=== PATIENT | female | born 1985 | race Caucasian/White ===

== ENCOUNTER 2022-05-08 07:06 | Inpatient (IN) | payer OTHER, SELFPAY ==
--- NOTE | 2022-05-08 07:40 | PM.OBHP.1 ---
OB HPI Date/Time Date of admission: 05/08/22 Date Patient Seen: 05/08/22 Time Patient Seen: 07:40 History of Present Condition Chief complaint: induction of labor : 7 Para: 3 Estimated Date of Delivery: 05/03/22 Estimated Gestational Age (weeks): 40w5d Narrative: Archana Jacobs is a 36 year old female here today for IOL at 40w5d r/to AMA. She has been hopeful for spontaneous labor, but now feels that it is time to meet her baby. She has been having contractions daily but nothing painful enough to start labor. Didn't sleep well last night. Baby has been moving well. Hungry. Denies loss of fluid or vaginal discharge changes. Indications Indication for induction OB: other (Advanced maternal age) History of Present care: good care, initiated at week # (12) and number of visits (10) Dating criteria: LMP confirmed by 1st trimester US Obstetrical complications: none Medical complications: other (Rosa's) Preadmission Labs Blood type: AB (+) positive HCT: 33.4 Cell-free DNA: Negative x 3 1 hr GTT: 107 Prior (ies) History: x 3 in 2002, 2013, 2014 SAB x 2 TAB x 1 Evaluation Evaluation Baseline heart rate: 130 Variability: Moderate (11-25) monitor accelerations: Present Monitor Decelerations: Absent Contraction Frequency (minutes): 4 Uterine Contraction Intensity: Mild Category of Tracing: Reactive Dilation (cm): 5 Effacement (%): 75 Dilation: >/=5 cm Effacement: 60-70% station: -1 Position of cervix: posterior Consistency: soft Tran score: 9 PFSH Medical History (Updated 05/08/22 @ 08:04 by Cynthia Phillips CNM, PHAN) HPV (human papilloma virus) anogenital infection Surgical History (Updated 05/08/22 @ 08:04 by Cynthia Phillips CNM, PHAN) History of appendectomy Family History (Updated 05/08/22 @ 08:06 by Cynthia Phillips CNM, PHAN) Aunt Cancer Uncle Cancer Mother Hypertension FH: mental illness Social History (Updated 05/08/22 @ 08:08 by Cynthia Phillips CNM, SR. PAYROLL MANAGER) marital status: number of children: 3 household members: spouse and children lives independently: No caregiver/support person: No housing: house education level: college occupational status: employed current occupational exposures/hazards: No travel history: over 6 months ago sexual history: monogamous do you feel safe at home: Yes Smoking Status: Never smoker substance use type: does not use Meds Home Medications and Allergies Home Medications Medication Instructions Recorded Confirmed Type levothyroxine 125 mcg tablet mcg 05/08/22 History Allergies Allergy/AdvReac Type Severity Reaction Status Date / Time Penicillins Allergy Severe Anaphylaxis Verified 05/08/22 08:15 Current Medications Medications: Levothyroxine 237 mg daily Fluticasone (100 mcg) and Salmeterol (50 mcg) Review of Systems Review of Systems Narrative: all systems reviewed and negative except as mentioned in HPI OB Exam Vital signs Blood Pressure: 132/83 Pulse Rate: 107 Temperature: 35.9 F Resp Effort & Inspection: normal respiratory effort and able to speak in complete sentences Auscultation: clear to auscultation bilaterally Cardio Rate: regular rate Rhythm: regular rhythm Heart Sounds: S1 normal and S2 normal Extremities Lower extremity: Yes normal to inspection and edema (none) DTR's: Rt Patellar: 2+ and Lt Patellar: 2+ GI Inspection: normal to inspection and other (gravid) Uterus Location (Fundal Height): 40 Presentation: vertex Objective Labs 05/08/22 08:00 Assessment and Plan Assessment and Plan Assessment and Plan narrative: Assessment: at 40w5d IOL for advanced maternal age GBS neg Penicillin allergy Rh positive Plan: Admit to L&D Plan for AROM Epidural when desired Breakfast ordered IV to be in place Time Spent with Patient Total time spent with greater than 50% in coordination of care (as documented) at patient's floor/unit and/or counseling patient:: 15-24 minutes
[2022-05-08 08:26] VITALS: BP 132/83; PULSE 107; TEMP 2.2; TEMP 35.9
[2022-05-08 08:31] LABS: Add Manual Diff / Slide Review NO; Basophils Absolute Auto 0 /uL (0-100); Basophils Percent Auto 0.2 % (0-2); Eosinophils Absolute Auto 100 /uL (0-450); Eosinophils Percent Auto 1.7 % (2-4); Hematocrit 32.5 % (36-46); Hemoglobin 11.1 g/dL (12.0-16.0); Lymphocytes Absolute Auto 1100 /uL (1100-4500); Mean Corpuscular HGB Conc 34.2 % (30-36); Mean Corpuscular Hemoglobin 29.7 PG (26-34); Mean Corpuscular Volume 87.1 fL (80-100); Monocytes Absolute Auto 500 /uL (0-900); Monocytes Percent Auto 7.4 % (3-14); Neutrophils Absolute Auto 5400 /uL (1500-7000); Neutrophils Percent Auto 75.7 % (50-75); Platelet Count 212 X10^3/uL (150-400); Red Blood Cell Count 3.73 X10^6/uL (4.0-5.2); Red Cell Distribution Width 14.9 % (11.6-14.8); White Blood Cell Count 7.1 X10^3/uL (4.5-11.0)
[2022-05-08 10:28] VITALS: BP 132/83
[2022-05-08] MEDS: LACTATED RINGERS 1,000 ML 100 ML IV (13:28)
[2022-05-08] MEDS: FENT 2MCG/ML BUPIV 0.125% EPI 200 MCG/100 ML PLAST..BAG 6 MCG EPIDURAL (13:30)
--- NOTE | 2022-05-08 14:42 | PM.OBPNLAB ---
Date/Time Date Patient Seen: 05/08/22 Time Patient Seen: 14:45 Pain Control Pain control: epidural Comments: Archana is doing well. Had some more pain on right side after epidural but now feeling relief after anesthesia gave a bolus. Started shaking recently. Changing positons often. VS: BP 114/55, HR 101 Pelvic Exam Dilation (cm): 10 Effacement (%): 100 station: 0 Comments: Complete Contractions Contractions on admission: irregular Contraction pattern: Regular (2-5 minutes) Contraction intensity: Strong/Firm Status status: Category l Heart Rate Baseline: 125 Monitor Accelerations: Present Monitor Decelerations: Early and Periodic (occasional) Monitor Variability: Moderate Assessment and Plan Assessment: active labor and other (complete) Comments: ASSESSMENT: 36 yo at 40w5d Completely dilated ROM x 6 hours, clear fluid, afebrile FHR Cat 1 AMA, Asthma, Rosa's PLAN: Lacy to call for family to come to hospital. Labor down for one hour then begin pushing.
--- NOTE | 2022-05-08 18:11 | P.PCNOB_ITS ---
Labor & Delivery Delivery date: 05/08/22 Intrapartal Events: None Cervical ripening method: none Induction method: AROM (clear fluid) Delivery monitor: external FHT and external uterine Route of delivery: L&D Laceration Description: Periurethral - 1st Degree (hemostatic without repair) Quantitative Blood Loss: 338 Anesthesia Type: Epidural Narrative: Lacy found complete with fetus at zero station after AROM. Lacy wanted to labor down for passive decent. Began pushing after one hour. Lacy pushed effectively in a variety of positions with coaching and support by , kids, CNMs, and RNs. FHR 150s/160s with moderate variability; variable decels into high 90s/100s with good recovery throughout. Warm compresses applied to perineum. Lacy pushed to then encouraged to stop pushing to allow for tissue stretching for a few seconds. FHR dropped to 80s during . Encouraged Lacy to continue pushing. Baby's head delivered in OA position. After a few seconds, assisted baby to restitute to OLGA LIDIA with gentle turning. FOB in place to help catch surprise baby girl. Shoulders delivered with another push for at 1733 over first degree laceration. Nuchal x 1 and body cord x 1, unwrapped after delivery. Spontaneous cry noted. Baby placed on maternal abdomen for drying and stimulation. Pitocin started for active third stage management. Cord stopped pulsating after 3-4 minutes. Cord clamped by SNM and cut by FOB. QBL 338, weighed. Placenta delivered Moss, appears intact with a 3 vessel cord. T railing membranes delivered with twisting placenta and gentle traction. Perineum inspected and repair not indicated. Mom and baby left and skin to skin. Everyone excited to meet their new sister, likely Jenna. [place] Baby 1: Infant gender: Female Presentation: vertex Position: Right Occiput Anterior Placenta delivery description: Spontaneous Cord Vessel Description: 3 Vessels score (1 min): 8 score (5 min): 9 Narrative: Birthweight not done at time of this note. Plan for aftercare: Routine care
--- NOTE | 2022-05-08 19:09 | P.HPNB_ITS ---
History History Term born to after IOL with AROM at 40w5d. GBS negative. Time of : 17:33 Gestation: term Multiple fetuses: No Mode of delivery: vaginal score (1 min): 8 score (5 min): 9 Complications with delivery: No Nursery Course Maternal RH factor: positive Direct nelsy: unknown Exam - Pediatric Vital Signs Vital Signs: Vital Signs Temp Pulse BP 35.9 F L 107 H 132/83 05/08/22 08:26 05/08/22 08:26 05/08/22 08:26 Objective Labs 05/08/22 08:00 Labs: Laboratory Results - last 24 hr 05/08/22 05/08/22 08:00 08:00 WBC 7.1 RBC 3.73 L Hgb 11.1 L Hct 32.5 L MCV 87.1 MCH 29.7 MCHC 34.2 RDW 14.9 H Plt Count 212 Neut % (Auto) 75.7 H Lymph % (Auto) 15.0 L Price % (Auto) 7.4 Eos % (Auto) 1.7 L Baso % (Auto) 0.2 Neut # (Auto) 5400 Lymph # (Auto) 1100 Price # (Auto) 500 Eos # (Auto) 100 Baso # (Auto) 0 Blood Type AB Positive Antibody Screen Negative Assessment & Plan Time Spent With Patient Critical Care time: I spent a total of [] minutes of critical care time on this patient's care tod ay; this time is exclusive of procedural time.
[2022-05-08] MEDS: DERMOPLAST SPRAY 20% 60 ML 1 SPRAY TOP (21:52)
[2022-05-08] MEDS: ACETAMINOPHEN 325 MG TABLET 650 MG PO (21:52)
[2022-05-08] MEDS: IBUPROFEN 600 MG TABLET PO (21:52)
[2022-05-09] MEDS: ACETAMINOPHEN 325 MG TABLET 650 MG PO ×2 (06:05→11:31)
[2022-05-09] MEDS: IBUPROFEN 600 MG TABLET PO ×2 (06:05→11:30)
[2022-05-09 06:45] LABS: Hematocrit 29.5 % (36-46); Hemoglobin 10.4 g/dL (12.0-16.0)
[2022-05-09] MEDS: DOCUSATE 100 MG CAPSULE PO (08:36)
[2022-05-09] MEDS: PRENATAL VIT,CALC/IRON/FOLIC 1 TABLET 1 TAB PO (08:36)
[2022-05-09] MEDS: LANOLIN OINT 7 GM 1 APPLIC TOP (08:40)
--- NOTE | 2022-05-09 15:16 | P.DS_ITS ---
Discharge Providers Provider Date of admission: 05/08/22 07:06 Discharge Date: 05/09/22 Primary care physician: Hanna Tran MD Consults: 05/08/22 07:44 Consult to Anesthesiology Urgent Comment: Anesthesia Consulting Provider: Enrike Ybarra Reason for consultation: Epidural Has provider been notified: No 05/09/22 21:35 Consult to [facility] [facility] Routine Comment: Discharge provider: Cynthia Phillips CNM, ARNP Summary Hospital Course Date Patient Seen: 05/09/22 Time Patient Seen: 14:00 Diagnoses: Normal spontaneous vaginal delivery Advanced maternal age Rosa's thyroiditis Hospital Course: Lacy was admitted for induction for post-dates. Induction with AROM. with 1st degree perineal laceration, hemostatic without repair. QBL 338 mL. Healthy baby girl. APGARs 8,9. Breast-feeding. Uncomplicated course. Peripartum Data Infant Delivery Method: Natural Vaginal Laceration Description: Perineal - 1st Degree Episiotomy description: None [place] 1: Gender: Female Disposition of : home Discharge Diagnosis (1) (normal spontaneous vaginal delivery): Start Date: 05/08/22 Start Time: 17:33 Status: Acute Problem Details: normal Status at Discharge Cognitive/behavioral status at discharge: oriented, at baseline, oriented and calm Functional status at discharge: independent ambulation Overall status at discharge: patient is progressing back to baseline Time Spent with Patient Time attestation: Total time spent providing and/or coordinating discharge services: Time spent: Greater than 30 minutes Specific discharge activities: teaching about self care, care, mood concerns, Objective Labs 05/09/22 06:33 Labs: Laboratory Results - last 24 hr 05/09/22 06:33 Hgb 10.4 L Hct 29.5 L Exam Vital Signs (past 8 hours): Stable Const General: healthy appearing and comfortable HENMT Head: normal to inspection Eyes General: appearance normal, both eyes and all related structures Neck Neck: normal visual inspection Chest Breast inspection: normal inspection of the breasts Resp Effort & Inspection: normal respiratory effort Cardio Rate: regular rate GI Inspection: normal to inspection and other (Gravid, U/1, firm) Skin General: no rashes or lesions noted Neuro General: patient alert, patient awake and patient oriented x3 Extrem General: normal to inspection and full ROM Psych Mental Status: mental status grossly normal Discharge Plan Discharge Plan Patient Disposition: Home Provider Discharge Comment: to [facility] Discharge orders & Medications Prescriptions: Continued levothyroxine 125 mcg tablet 237 mcg Label Comments: Take 1 tablet (100 mcg total) by mouth daily. Take with a 137 mcg levothyroxine tablet for a total dose of 237 mcg fluticasone propion-salmeterol [Wixela Inhub] 100-50 mcg/dose blister with device INHALATION Label Comments: INHALE ONE PUFF INTO THE LUNGS TWICE DAILY Medication counseling provided by Pharmacist: No Follow up/Referrals: Cynthia Phillips CNM, ATTENDANCE SECRETARY [Advanced Security Supervisor] - (2 and 6 week telehealth appts w/ FRANKLIN Marie as discussed) Diet/Activity/Treatments Diet: Diet as Tolerated Activity: low hanks for 2 weeks Cold/Heat Therapy: as needed for pain Skin/Wound/Dressing Care Report to your healthcare provider any signs of infection, such as:: chills, fever, increased pain, unusual drainage and unusual redness Visit Report/Discharge Packet Stand Alone Forms: Discharge: Care, Patient Portal/API, Stroke Signs & Symptoms Discharge Data Primary Care Provider: Hanna Tran Attending Provider: Martina Rojas
== END 2022-05-09 15:00 | disposition home or self-care (01) | DRG 807 ==
PROVIDERS: Advanced Practice Midwife; Admitting Provider Nurse Practitioner Obstetrics & Gynecology; PCP Family Medicine; Referring Provider Nurse Practitioner Obstetrics & Gynecology; Visit Provider Nurse Practitioner Obstetrics & Gynecology
DX: O99.892 Other specified diseases and conditions complicating childbirth (principal); Z37.0 Single live birth; E06.3 Autoimmune thyroiditis; Z3A.40 40 weeks gestation of pregnancy
CPT/HCPCS: 36415; 59050; 85014; 85018; 85025; 86850; 86900; 86901; G0378; G0379